=== PATIENT | male | born 1960 | race Two or more races ===

== ENCOUNTER → 2022-07-04 | Emergency (ER) | payer OTHER ==
[~2022-07-04] VITALS: Ht 167.6 cm; Wt 83.9 kg
[~2022-07-04] MED LIST: AMOX-CLAV 875-1 EACH PO; BOTTL; CANASA1000 MG/SU; EFFEXOR XR150 MG; FLUOXETINE HCL20 MG PO; INVEGA; LITHIUM CARBON450 MG PO; SYNTHROID50 MCG; TUSSIN DM SYRU118 ML PO
== END | disposition home or self-care (01) ==
LOC: ER 06:15
DX: H10.10 Acute atopic conjunctivitis, unspecified eye (principal); J06.9 Acute upper respiratory infection, unspecified; Z20.822 Contact with and (suspected) exposure to COVID-19

== ENCOUNTER 2023-04-22 03:46 | Emergency (ER) | payer OTHER ==
[~2023-04-22] VITALS: Ht 165.1 cm; Wt 70.8 kg
[~2023-04-22 03:46] MED LIST changes: -CEPHALEXIN500 MG PO
[2023-04-22] MEDS ORDERED: CEPHALEXIN500 MG PO (04:39)
== END 2023-04-22 04:49 ==
LOC: ER 03:47
DX: L92.3 Foreign body granuloma of the skin and subcutaneous tissue (principal); Z88.2 Allergy status to sulfonamides

== ENCOUNTER → 2023-04-22 | Emergency (ER) | payer OTHER ==
[~2023-04-22] VITALS: Ht 165.1 cm; Wt 70.8 kg
[~2023-04-22] MED LIST changes: +CEPHALEXIN500 MG PO
== END | disposition left against medical advice (07) ==
LOC: ER 19:44
DX: Z53.21 Procedure and treatment not carried out due to patient leaving prior to being seen by health care provider (principal)